=== PATIENT | female | born 1995 | race African-American/Black ===

== ENCOUNTER 2022-10-08 20:32 | Emergency (ER) | payer SELFPAY ==
[2022-10-08] MEDS ORDERED: Ketorolac Tromethamine 30 MG/ML VIAL ONE (20:45)
[2022-10-08] MEDS ORDERED: fentaNYL 50 mcg/mL 1 mL Vial ONE (22:25)
[2022-10-08] MEDS ORDERED: Ketamine In 0.9 % NaCl 50 MG/5 ML SYRINGE ONE (22:40)
[2022-10-08] MEDS ORDERED: PROPOFOL 20 ML ONE (22:43)
[2022-10-08] MEDS ORDERED: Acetaminophen 500 MG TAB ONE (23:58)
== END 2022-10-08 23:59 | disposition home or self-care (01) ==
LOC: ERS 20:32
DX: S43.005A Unspecified dislocation of left shoulder joint, initial encounter (principal); F17.210 Nicotine dependence, cigarettes, uncomplicated; X50.1XXA Overexertion from prolonged static or awkward postures, initial encounter
CPT/HCPCS: 23650; 96374; 96375; 99152; 99153; J1885; J2704; J3010; J3490